=== PATIENT | male | born 1955 | race Caucasian/White ===

== ENCOUNTER 2019-06-16 02:41 | Inpatient (IN) | payer BC ==
--- NOTE | 2019-06-16 03:44 | ED ---
HPI Chest Pain - HPI Summary HPI Summary: 63 year old M presenting to [facility] accompanied by EMS complains of of left CP and SOB since earlier today 06/16/2019. EMS administered Nitro en route which helped with pt's discomfort. Pt reports a cough most likely due to smoking. Patient denies abd pain, nausea, fever, chills, nasal discharge, sore throat, swelling in the legs, diarrhea and constipation. PMHx of HTN years ago but has since been relieved due to weight loss. NO PMHx of MS or CP. SHx of smoking. The patient rates the pain 8/10 in severity. Symptoms aggravated by nothing. Symptoms alleviated by nothing. - History of Current Complaint Chief Complaint: EDChestPainROMI Time Seen by Provider: 06/16/19 03:03 Hx Obtained From: Patient Onset/Duration: Started Hours Ago, Still Present Current Severity: Moderate Pain Intensity: 8 Pain Scale Used: 0-10 Numeric Chest Pain Location: Diffuse - Left side Aggravating Factor(s): Nothing Alleviating Factor(s): Nothing Associated Signs and Symptoms: Positive: Negative - negative - sore throat, diarrhea and constipation, Shortness of Breath, Cough - smoker. Negative: Fever , Chills, Nausea, Abdominal Pain, Nasal Congestion, Edema - in legs - Allergy/Home Medications Allergies/Adverse Reactions: Allergies Allergy/AdvReac Type Severity Reaction Status Date / Time No Known Allergies Allergy Verified 06/16/19 03:16 Home Medications: Home Medications Acamprosate Calcium [Acamprosate Calcium Dr] 333 mg PO 06/16/19 [History] Cyanocobalamin TAB* [Vitamin B12 TAB*] 1,000 mcg PO DAILY 06/16/19 [History Confirmed 06/16/19] Disulfiram TAB* [Antabuse 250 MG TAB*] 250 mg PO 06/16/19 [History] Duloxetine HCl [Drizalma Sprinkle] 30 mg PO 06/16/19 [History] Folic Acid TAB* [Folvite TAB*] 06/16/19 [History] Gabapentin CAP(*) [Neurontin 300 CAP(*)] 300 mg PO BID 06/16/19 [History Confirmed 06/16/19] Ibuprofen TAB* [Advil TAB*] 200 mg PO Q6H 06/16/19 [History Confirmed 06/16/19] Lactulose 10 gm PO 06/16/19 [History] Loratadine 10 mg PO 06/16/19 [History] Naltrexone TAB* 06/16/19 [History] Omeprazole CAP (NF) 06/16/19 [History] Thiamine TAB* [Vitamin B-1 TAB 100 MG*] 06/16/19 [History] busPIRone TAB* [Buspar TAB *] 15 mg PO 06/16/19 [History] chlordiazePOXIDE HCl [Chlordiazepoxide HCl] 25 mg PO 06/16/19 [History] guaiFENesin [Guaifenesin] 06/16/19 [History] traZODone TAB* [Desyrel TAB*] 50 mg PO BEDTIME 06/16/19 [History Confirmed 06/16] PMH/Surg Hx/FS Hx/Imm Hx Cardiovascular History: Reports: Hx Hypertension Denies: Hx Myocardial Infarction Sensory History: Denies: Hx Legally Blind Infectious Disease History: No Infectious Disease History: Denies: Traveled Outside the [place] in Last 30 Days - Family History Known Family History: Positive: Hypertension - Social History Alcohol Use: Daily Alcohol Amount: Patient declines to share amount Substance Use Type: Reports: None Smoking Status (MU): Heavy Every Day Tobacco Smoker Review of Systems Negative: Fever, Chills Negative: Sore Throat, Nasal Discharge Positive: Chest Pain Positive: Shortness Of Breath, Cough - smoker Gastrointestinal: Negative - negative- constipation Negative: Abdominal Pain, Diarrhea, Nausea Negative: Edema - elgs All Other Systems Reviewed And Are Negative: Yes Physical Exam - Summary Physical Exam Summary: Constitutional: Well-developed, Well-nourished, Alert. (-) Distressed Skin: Warm, Dry HENT: Normocephalic; Atraumatic Eyes: Conjunctiva normal Neck: Musculoskeletal ROM normal neck. (-) JVD, (-) Stridor, (-) Tracheal deviation Cardio: Rhythm regular, rate normal, Heart sounds normal; Intact distal pulses; The pedal pulses are 2+ and symmetric. Radial pulses are 2+ and symmetric. (-) Murmur Pulmonary/Chest wall: Effort normal. (-) Respiratory distress, (-) Wheezes, (-) Rales Abd: Soft, (-) tenderness, (-) Distension, (-) Guarding, (-) Rebound Musculoskeletal: (-) Edema Lymph: (-) Cervical adenopathy Neuro: sleepy, but arousable Psych: Mood and affect Normal Triage Information Reviewed: Yes Vital Signs On Initial Exam: Initial Vitals Temp Pulse Resp BP Pulse Ox 97.8 F 78 15 131/80 100 06/16/19 02:50 06/16/19 02:50 06/16/19 02:50 06/16/19 02:50 06/16/19 02:50 Vital Signs Reviewed: Yes Procedures - Sedation Patient Received Moderate/Deep Sedation with Procedure: No Diagnostics - Vital Signs Vital Signs Temp Pulse Resp BP Pulse Ox 06/16/19 03:04 85 06/16/19 02:50 97.8 F 78 15 131/80 100 - Laboratory Result Diagrams: 06/16/19 03:09 06/16/19 03:09 Lab Statement: Any lab studies that have been ordered have been reviewed, and results considered in the medical decision making process. - Radiology CXR Radiology Interpretation Completed By: ED Physician Summary of Radiographic Findings: CXR found no abnormalities, per ED physician. Pending official report. - EKG 0322 Cardiac Rate: NL Summary of EKG Findings: Normal sinus rhythm at 92 bpm, normal MO, normal QRS, prolonged QTc, normal axis, normal ST, normal T-waves, nonspecific EKG Chest Pain Course/Dx - Course Course Of Treatment: 63 year old M presenting to [facility] accompanied by EMS complains of of left CP and SOB since earlier today 06/16/2019. EMS administered Nitro en route which helped with pt's discomfort. Physical exam findings: sleepy, but arousable. Bloodwork results with no significant abnormalities except for L RBC, L Hgb, L Hct, H MCH, L Plt Count, L Absolute Lymphs, L Sodium , L Potassium (2.7), L Chloride, L BUN/Creatinine Ratio, H Lactic Acid (3.2), H Alkaline Phosphatase. An EKG shows normal sinus rhythm at 92 bpm, normal MO, normal QRS, prolonged QTc, normal axis, normal ST, normal T-waves, nonspecific EKG. CXR shows no abnormalities, per ED physician. Pending official report. In the ED course, the patient was given Ns, Potassium Chlor 40 meq, BLANCA; 10 meq/ 50 ml Ivpremix. We discussed patient care with who recommended admission. The patient will be admitted to the hospitalist. The patient is agreeable with this plan. - Diagnoses Provider Diagnoses: Chest pain, Hyponatremia, Lactic acid acidosis - Provider Notifications Discussed Care Of Patient With: Nancy Patel Instructed by Provider To: Admit As Inpatient Discharge ED - Sign-Out/Discharge Documenting (check all that apply): Patient Departure - admit - Discharge Plan Condition: Stable Disposition: ADMITTED TO [facility] - Billing Disposition and Condition Condition: STABLE Disposition: Admitted to [facility] - Attestation Statements Document Initiated by Scribe: Yes Documenting Scribe: Juan Luis Watters Provider For Whom Meredithibe is Documenting (Include Credential): Melisa Pierson MD Scribe Attestation: I, Juan Luis Watters, scribed for Melisa Gutierrez MD on 06/17/19 at 0402. Scribe Documentation Reviewed: Yes Provider Attestation: The documentation as recorded by the meredithibJuan Luis garcia accurately reflects the service I personally performed and the decisions made by me, Melisa Gutierrez MD Status of Scribe Document: Viewed
[2019-06-16 03:50] LABS: BUN/Creatinine Ratio 6.8 (8-20); Calcium 8.7 mg/dL (8.6-10.3); EGFR African American 106.5 (>60); Globulin 2.7 g/dL (2-4); Total Protein 6.7 g/dL (6.4-8.9)
[2019-06-16 03:51] LABS: Albumin/Globulin Ratio 1.5 (1-3); Total Bilirubin 0.6 mg/dL (0.2-1.0)
[2019-06-16 03:53] LABS: Troponin I 0.01 ng/mL (<0.03)
[2019-06-16 04:10] LABS: ABS Lymphocytes 0.5 10^3/ul (1.0-4.8); ABS Monocytes 0.7 10^3/ul (0-0.8); ABS Neutrophils 3.4 10^3/ul (1.5-7.7); Eosinophil % 0.9 %; Hematocrit 38 % (42-52); Hemoglobin 13.5 g/dL (14.0-18.0); Lymphocyte % 10.2 %; Mean Corpuscular HGB Conc 36 g/dL (31-36); Mean Corpuscular Hemoglobin 33 pg (27-31); Mean Corpuscular Volume 93 fL (80-94); Mean Platelet Volume 9.6 fL (7.4-10.4); Platelet Count 67 10^3/uL (150-450); Red Blood Count 4.08 10^6 /uL (4.18-5.48); Red Cell Distribution Width 15 % (10-15); White Blood Count 4.7 10^3/uL (3.5-10.8)
[2019-06-16 04:11] LABS: Potassium 2.7 mmol/L (3.5-5.0)
[2019-06-16] MEDS ORDERED: KCL 10 MEQ/50 ML IVPREMIX* 10 MEQ/50 ML BAG IV ONE (04:12)
[2019-06-16] MEDS ORDERED: Potassium Chlor TAB* 20 MEQ TAB.ER PO ONE (04:12)
[2019-06-16] MEDS ORDERED: NS 0.9% 1000 ML** 1,910 ML IV ONE (04:45)
--- NOTE | 2019-06-16 08:08 | ADMNOTE ---
Subjective Date of Service: 06/16/19 Interval History: ADMISSION HISTORY AND PHYSICAL EXAM: Allergies Allergy/AdvReac Type Severity Reaction Status Date / Time No Known Allergies Allergy Verified 06/16/19 03:16 Home Medications Medication Instructions Recorded Confirmed Type Acamprosate Calcium [Acamprosate 333 mg PO 06/16/[address]] Cyanocobalamin TAB* [Vitamin B12 1,000 mcg PO DAILY 06/16/19 06/16/19 History TAB*] Disulfiram TAB* [Antabuse 250 MG 250 mg PO 06/16/19 History TAB*] Duloxetine HCl [Drizalma Sprinkle] 30 mg PO 06/16/19 History Folic Acid TAB* [Folvite TAB*] 06/16/19 History Gabapentin CAP(*) [Neurontin 300 300 mg PO BID 06/16/19 06/16/19 History CAP(*)] Ibuprofen TAB* [Advil TAB*] 200 mg PO Q6H 06/16/19 06/16/19 History Lactulose 10 gm PO 06/16/19 History Loratadine 10 mg PO 06/16/19 History Naltrexone TAB* 06/16/19 History Omeprazole CAP (NF) 06/16/19 History Thiamine TAB* [Vitamin B-1 TAB 100 06/16/19 History MG*] busPIRone TAB* [Buspar TAB *] 15 mg PO 06/16/19 History chlordiazePOXIDE HCl 25 mg PO 06/16/19 History [Chlordiazepoxide HCl] guaiFENesin [Guaifenesin] 06/16/19 History traZODone TAB* [Desyrel TAB*] 50 mg PO BEDTIME 06/16/19 06/16/19 History HPI: The patient was in his usual state of health when he had chest pain about 1-2 AM today. It lasted about an hour. No associated sx's No prior hx chest pain or heart disease. Family History: Findings - Father living with heart disease. Mother of heart failure. 1 brother with heart disease. Social History: Findings - Smoker. Alcoholism. Lives alone. His father is his SDM. Past Medical History: Unchanged from Admission - smoker. Inguinal herniorrhaphy. Review of Systems - Measurements Intake and Output: Intake and Output Last 24 Hours 06/14/19 06/15/19 06/16/19 06/17/19 06:59 06:59 06:59 06:59 Intake Total 1960 Output Total 400 Balance 1560 Weight 140 lb Intake: IV Fluids 1959 Output: Urine 400 - Review of Systems Constitutional Symptoms: Negative: Weight Gain, Weight Loss, Weakness, Fatigue, Fever, Night Sweats, Unexplained Falls, Other Dermatology: Positive: Normal HEENT: Positive: Normal Eyes: Positive: Normal Thyroid: Positive: Normal Pulmonary: Positive: Normal Cardiology: Positive: Chest Pain Gastroenterology: Positive: Normal Genital - Urinary: Positive: Normal Musculoskeletal: Positive: Joint Pain Endocrinology: Positive: Normal Hematologic/Lymphatic: Negative: Anemia, Easy Bruising, Hx Leukemia, Hx Lymphoma, Use of Anticoagulant, Use of Antiplatelet Drugs, Other Neurology: Positive: Normal Psychiatry: Positive: Depression Allergic/Immunologic: Negative: Hx Anaphylaxis, Hx Angioedema, Hx Environmental, Hx Seasonal, Asthma, Hx HIV, Immunocompromise, Swollen Glands LymphNodes, Other Objective Vital Signs - 8 hr 06/16/19 06/16/19 06/16/19 02:48 02:49 02:50 Temperature 97.8 F Pulse Rate 85 78 Respiratory 16 14 15 Rate Blood Pressure 131/80 131/80 (mmHg) O2 Sat by Pulse 97 100 Oximetry 06/16/19 06/16/19 06/16/19 03:00 03:04 03:18 Temperature Pulse Rate 89 85 87 Respiratory 17 Rate Blood Pressure 107/76 (mmHg) O2 Sat by Pulse 98 100 Oximetry 06/16/19 06/16/19 06/16/19 03:48 04:00 04:18 Temperature Pulse Rate 80 87 85 Respiratory 16 22 17 Rate Blood Pressure 111/61 139/78 (mmHg) O2 Sat by Pulse 100 100 100 Oximetry 06/16/19 06/16/19 06/16/19 04:48 05:18 05:49 Temperature 97.6 F Pulse Rate 83 79 Respiratory 14 19 Rate Blood Pressure 111/77 129/84 (mmHg) O2 Sat by Pulse 99 100 100 Oximetry 06/16/19 06/16/19 06:00 06:42 Temperature 97.9 F Pulse Rate 78 78 Respiratory 16 15 Rate Blood Pressure 106/60 (mmHg) O2 Sat by Pulse 100 100 Oximetry Oxygen Devices in Use Now: None Appearance: Alert, supine on ED stretcher. Neutral affect. Looks comfortable. Eyes: No Scleral Icterus Ears/Nose/Mouth/Throat: Clear Oropharnyx, Mucous Membranes Moist Neck: NL Appearance and Movements; NL JVP, No Thyroid Enlargement, Masses Respiratory: Symmetrical Chest Expansion and Respiratory Effort, Clear to Auscultation, Clear to Percussion Cardiovascular: NL Sounds; No Murmurs; No JVD, RRR, No Edema, - Abdominal: NL Sounds; No Tenderness; No Distention, No Hepatosplenomegaly Extremities: No Edema, No Clubbing, Cyanosis Skin: No Rash or Ulcers, No Nodules or Sclerosis, - Neurological: Alert and Oriented x 3, NL Sensation - No tremor. Result Diagrams: 06/16/19 03:09 06/16/19 03:09 Assess/Plan/Problems-Billing Assessment: - Patient Problems (1) Hyponatremia Current Visit: Yes Status: Acute Code(s): E87.1 - HYPO-OSMOLALITY AND HYPONATREMIA SNOMED Code(s): 27599749 Comment: Likely related to alcohol use. Fluid restriction. Repeat BMP . (2) Hypokalemia Current Visit: Yes Status: Acute Code(s): E87.6 - HYPOKALEMIA SNOMED Code( s): 10219230 Comment: Oral KCL ordered. BMP 06/17. (3) Chest pain Current Visit: Yes Status: Acute Code(s): R07.9 - CHEST PAIN, UNSPECIFIED SNOMED Code(s): 93770270 Comment: HEART score 3. Stress test 06/17. Heart healthy diet, received ASA in ambulance, continue here. (4) Tobacco abuse Current Visit: Yes Status: Acute Code(s): Z72.0 - TOBACCO USE SNOMED Code( s): 041419310 Comment: Pt advised to quit smoking and avoid second hand smoke. Nicotine patch 21 mg/d ordered. (5) Alcoholism Current Visit: Yes Status: Acute Code(s): F10.20 - ALCOHOL DEPENDENCE, UNCOMPLICATED SNOMED Code(s): 4064489 Comment: Will give tapering dose chlordiazepoxide while in hospital. Thiamine. SW consult.
[2019-06-16] MEDS ORDERED: chlordiazePOXIDE CAP* 25 MG PO PRN (11:12)
[2019-06-16] MEDS: D5W NS 0.9% 20Meq KCL 1000 ML* 1,000 ML IV SCH (11:27)
[2019-06-16] MEDS: Cyanocobalamin TAB* 500 MCG PO SCH (11:32)
[2019-06-16] MEDS: Thiamine TAB* 100 MG TAB PO SCH (11:33)
[2019-06-16] MEDS: Pantoprazole TAB * 40 MG TAB PO SCH (11:33)
[2019-06-16] MEDS: Folic Acid TAB* 1 MG PO SCH (11:33)
[2019-06-16] MEDS: chlordiazePOXIDE CAP* 25 MG PO SCH ×3 (11:33→23:40)
[2019-06-16] MEDS: Aspirin 81 mg CHEW TAB* 81 MG TAB.CHEW PO SCH (11:33)
[2019-06-16] MEDS: Potassium Chlor TAB* 10 MEQ TAB.ER PO SCH ×4 (11:33→23:40)
[2019-06-16] MEDS: DULOXETINE 30 MG PO SCH (11:35)
[2019-06-16] MEDS: Enoxaparin(*) 40 MG/0.4 ML SYR SUBCUT SCH (11:39)
[2019-06-17] MEDS: D5W NS 0.9% 20Meq KCL 1000 ML* 1,000 ML IV SCH (02:47)
[2019-06-17 05:13] LABS: BUN/Creatinine Ratio 5.5 (8-20); Calcium 7.9 mg/dL (8.6-10.3); EGFR African American 102.5 (>60); EGFR Non-African American 84.7 (>60); Potassium 4.3 mmol/L (3.5-5.0)
[2019-06-17] MEDS ORDERED: Nicotine PATCH 21 MG/24 HR* PATCH TRANSDERM SCH (08:00)
[2019-06-17] MEDS ORDERED: Regadenoson* 0.4 MG/5 ML SYRINGE ONE (08:22)
[2019-06-17] MEDS: Potassium Chlor TAB* 10 MEQ TAB.ER PO SCH ×2 (09:12→15:41)
[2019-06-17] MEDS: Aspirin 81 mg CHEW TAB* 81 MG TAB.CHEW PO SCH (09:12)
[2019-06-17] MEDS: chlordiazePOXIDE CAP* 25 MG PO SCH ×2 (09:13→15:41)
[2019-06-17] MEDS: Thiamine TAB* 100 MG TAB PO SCH (09:13)
[2019-06-17] MEDS: Folic Acid TAB* 1 MG PO SCH (09:13)
[2019-06-17] MEDS: Pantoprazole TAB * 40 MG TAB PO SCH (09:13)
[2019-06-17] MEDS: DULOXETINE 30 MG PO SCH (09:14)
[2019-06-17] MEDS: Cyanocobalamin TAB* 500 MCG PO SCH (09:14)
[2019-06-17 13:02] LABS: ABS Eosinophils 0.1 10^3/ul (0-0.6); ABS Lymphocytes 0.4 10^3/ul (1.0-4.8); ABS Monocytes 0.4 10^3/ul (0-0.8); ABS Neutrophils 1.7 10^3/ul (1.5-7.7); Eosinophil % 2.7 %; Hematocrit 36 % (42-52); Hemoglobin 12.4 g/dL (14.0-18.0); Lymphocyte % 15.2 %; Mean Corpuscular HGB Conc 35 g/dL (31-36); Mean Corpuscular Hemoglobin 33 pg (27-31); Mean Corpuscular Volume 96 fL (80-94); Mean Platelet Volume 9.9 fL (7.4-10.4); Platelet Count 50 10^3/uL (150-450); Red Blood Count 3.72 10^6 /uL (4.18-5.48); Red Cell Distribution Width 16 % (10-15); White Blood Count 2.6 10^3/uL (3.5-10.8)
--- NOTE | 2019-06-17 13:44 | CONSULT ---
Subjective Date of Service: 06/17/19 Interval History: Service Date: 06/16/19 Consult date 06/17/2019 CC: Chest pain Reason for consult: chest pain HPI Mr. Garay is a 63 year old man who developed left upper chest discomfort and shortness of breath at rest. He tells me he has never had this discomfort before. He tells me the discomfort lasted about 4 hours total from start to complete resolustion. H+P notes about an hour. Review of Nursing records put the discomfort at about 2 hours. Regardless, the pain was rated as severe and continuous without interruption for at least an hour. He had a lexiscan stress MPI which I reviewed. He had prominent tracer uptake of bowel loops on stress imaging that reduced quality. There was a prominent inferior wall defect that corrected on attenuation correction consistent with artifact. He is now without discomfort. Allergies Allergy/AdvReac Type Severity Reaction Status Date / Time bee venom protein (honey bee) Allergy Swelling Verified 06/17/19 11:37 haloperidol [From Haldol] Allergy Swelling Verified 06/17/19 11:37 prochlorperazine Allergy Swelling Verified 06/17/19 11:37 [From Compazine] Soc Hx: Tobacco use Alcoholism No active drugs Pmhx/surgical: inguinal hernia Medications Active Medications: Aspirin (Aspirin 81 Mg Chew Tab*) 81 mg PO DAILY [facility] Last Admin: 06/17/19 09:12 Dose: 81 mg Chlordiazepoxide (Librium Cap*) 25 mg PO TID [facility] Last Admin: 06/17/19 09:13 Dose: 25 mg Chlordiazepoxide (Librium Cap*) 25 mg PO Q2H PRN PRN Reason: ANXIETY Cyanocobalamin (Vitamin B12 Tab*) 1,000 mcg PO DAILY [facility] Last Admin: 06/17/19 09:14 Dose: 1,000 mcg Enoxaparin Sodium (Lovenox(*)) 40 mg SUBCUT Q24H [facility] Last Admin: 06/16/19 11:39 Dose: 40 mg Folic Acid (Folvite Tab*) 1 mg PO DAILY [facility] Last Admin: 06/17/19 09:13 Dose: 1 mg Potassium Chloride/Dextrose (D5w Ns 0.9% 20meq Kcl 1000 Ml*) 1,000 mls @ 75 mls /hr IV PER RATE [facility] Last Admin: 06/17/19 02:47 Dose: 75 mls/hr Nicotine (Nicotine Patch 21 Mg/24 Hr*) 1 patch TRANSDERM DAILY@0800 [facility] Last Admin: 06/17/19 09:12 Dose: 1 patch Nft: Duloxetine Hcl [Drizalma Sprinkle] 30 Mg 30 mg PO DAILY [facility] Last Admin: 06/17/19 09:14 Dose: Not Given Pantoprazole Sodium (Protonix Tab*) 40 mg PO DAILY [facility] Last Admin: 06/17/19 09:13 Dose: 40 mg Potassium Chloride (Klor Con Er Tab*) 20 meq PO QID [facility] Last Admin: 06/17/19 09:12 Dose: 20 meq Thiamine HCl (Vitamin B-1 Tab*) 100 mg PO DAILY [facility] Last Admin: 06/17/19 09:13 Dose: 100 mg Home Medications: Acamprosate Calcium [Acamprosate Calcium Dr] 333 mg PO 06/16/19 [History] Cyanocobalamin TAB* [Vitamin B12 TAB*] 1,000 mcg PO DAILY 06/16/19 [History Confirmed 06/16/19] Disulfiram TAB* [Antabuse 250 MG TAB*] 250 mg PO 06/16/19 [History] Duloxetine HCl [Drizalma Sprinkle] 30 mg PO 06/16/19 [History] Folic Acid TAB* [Folvite TAB*] 06/16/19 [History] Gabapentin CAP(*) [Neurontin 300 CAP(*)] 300 mg PO BID 06/16/19 [History Confirmed 06/16/19] Ibuprofen TAB* [Advil TAB*] 200 mg PO Q6H 06/16/19 [History Confirmed 06/16/19] Lactulose 10 gm PO 06/16/19 [History] Loratadine 10 mg PO 06/16/19 [History] Naltrexone TAB* 06/16/19 [History] Omeprazole CAP (NF) 06/16/19 [History] Thiamine TAB* [Vitamin B-1 TAB 100 MG*] 06/16/19 [History] busPIRone TAB* [Buspar TAB *] 15 mg PO 06/16/19 [History] chlordiazePOXIDE HCl [Chlordiazepoxide HCl] 25 mg PO 06/16/19 [History] guaiFENesin [Guaifenesin] 06/16/19 [History] traZODone TAB* [Desyrel TAB*] 50 mg PO BEDTIME 06/16/19 [History Confirmed 06/16] Review of Systems - Measurements Intake and Output: Intake and Output Last 24 Hours 06/15/19 06/16/19 06/17/19 06/18/19 06:59 06:59 06:59 06:59 Intake Total 2212 618 6087 Output Total 400 Balance 4365 662 0595 Weight 140 lb 131 lb 9.6 oz Intake: IV Fluids 1959 1426 D5W NS 20 meq KCL 1426 Oral 710 0 Output: Urine 400 Other: Estimated Void Medium # Bowel Movements 0 # Voids 3 - Review of Systems Constitutional Symptoms: Negative: Weight Gain, Weight Loss, Fever Dermatology: Negative: Rash, Skin Lesions HEENT: Negative: Change in Hearing, Vertigo Eyes: Negative: Change in Vision, Double Vision Thyroid: Negative: Weight Loss, Weight Gain Pulmonary: Positive: Shortness of Breath Negative: Respiratory Distress Cardiology: Positive: Chest Pain, Shortness of Breath Negative: Edema, Syncope, Claudication, Paroxysmal Nocturnal Dyspnea, Orthopnea Gastroenterology: Negative: Blood in Stools, Haematemesis, Melena Genital - Urinary: Negative: Dysuria, Hematuria Musculoskeletal: Negative: Joint Pain, Joint Stiffness Endocrinology: Negative: Obesity, Diabetes Hematologic/Lymphatic: Negative: Use of Anticoagulant, Use of Antiplatelet Drugs Neurology: Negative: Change in Speech, Change in Sphincter Function, Change in Walking, Hx of Stroke\TIA Psychiatry: Negative: Unusual Anxiety, Suicidal Ideation Allergic/Immunologic: Negative: Hx HIV, Immunocompromise Review of Systems Statement: All other review of systems negative, unless stated above. Objective Vital Signs: Temp Pulse Resp BP Pulse Ox 97.4 F 52 16 106/62 100 06/17/19 07:15 06/17/19 07:15 06/17/19 09:13 06/17/19 07:15 06/17/19 07:15 Oxygen Devices in Use Now: None Appearance: nad, flat affect, somewhat unkept appearance Ears/Nose/Mouth/Throat: Clear Oropharnyx Neck: NL Appearance and Movements; NL JVP, Trachea Midline Respiratory: Symmetrical Chest Expansion and Respiratory Effort, Clear to Auscultation Cardiovascular: NL Sounds; No Murmurs; No JVD, RRR, No Edema Abdominal: NL Sounds; No Tenderness; No Distention Extremities: No Edema Skin: No Rash or Ulcers Neurological: Alert and Oriented x 3 Laboratory Results: 06/17/19 12:56 06/17/19 04:46 Total Bilirubin 0.60 mg/dL (0.2-1.0) 06/16/19 03:09 AST 26 U/L (13-39) 06/16/19 03:09 ALT 18 U/L (7-52) 06/16/19 03:09 Alkaline Phosphatase 118 U/L (34-104) H 06/16/19 03:09 B-Natriuretic Peptide 35 pg/mL (<=100) 06/16/19 03:09 Total Protein 6.7 g/dL (6.4-8.9) 06/16/19 03:09 Albumin 4.0 g/dL (3.2-5.2) 06/16/19 03:09 Globulin 2.7 g/dL (2-4) 06/16/19 03:09 Albumin/Globulin Ratio 1.5 (1-3) 06/16/19 03:09 06/16/19 06/16/19 06/16/19 03:09 06:31 09:06 Troponin I 0.01 0.01 0.00 Diagnostic Imaging: Exam Date: 06/16/19 CHEST AP/PORT IMPRESSION: #. No acute pulmonary or cardiac process evident. EKG Data: ekg on admission NSR mildly prolonged qt interval, no ischemic changes Assessment/Plan The degree and length of patients symptom episode would have expected an abnormal troponin level if it were related to myocardial ischemia. AC corrected lexiscan stress MPI was normal. Patient was counseled on smoking cessation to reduce the risk of things including but not limited to heart attack and and he expressed understanding. I recommend to check and treat lipids according to current guidelines. Will recheck an EKG (ordered) post-potassium replacement
[2019-06-17] MEDS: Enoxaparin(*) 40 MG/0.4 ML SYR SUBCUT SCH (14:44)
[2019-06-17 18:04] VITALS: BP 117/63
--- NOTE | 2019-06-17 18:34 | DS ---
DISCHARGE SUMMARY: DATE OF ADMISSION: DATE OF DISCHARGE: 06/17/19 HISTORY OF PRESENT ILLNESS/HOSPITAL COURSE: This 63-year-old man had chest pain that woke him up at about 1 or 2 a.m. It lasted about an hour. There were no associated symptoms. He never had similar pain before. He had no history of heart disease. The rest of the history is detailed in the admission note. The patient was admitted to a telemetry unit. He had 3 troponin levels, all of which were within normal limits. He had a nuclear chemical stress test. The radiologist felt there was an area of ischemia, but Dr. Reed reviewed the images. With attenuation correction, there was no area of ischemia. The patient was seen by social media assistant and given the list of inpatient and outpatient providers and services for alcohol rehabilitation. The patient was given a nicotine patch. I think the patient has been out of his medications for some time. He has not followed up properly with Dr. Snigh in [place] or the [place] system. I encouraged him to make an appointment with his primary doctor and with a [place] doctor and to get his medications from the [place]. The medication list that we gave him would probably be not the final one, to be given by his primary providers. DISCHARGE DIAGNOSES: 1. Noncardiac chest pain. 2. Hyponatremia and hypokalemia. 3. Tobacco abuse. 4. Alcoholism. DISCHARGE MEDICATIONS: 1. Nicotine patch 21 mg per day daily. 2. Buspirone 15 mg as prescribed. 3. Gabapentin 300 mg b.i.d. 4. Vitamin B12 1000 mcg daily. 5. Guaifenesin as prescribed. 6. Omeprazole as prescribed. 7. Loratadine 10 mg as prescribed. 8. Lactulose as prescribed. 9. Folic acid as prescribed. 10. Duloxetine 30 mg daily. 11. Trazodone 50 mg h.s. 12. Ibuprofen as prescribed. 13. Thiamine 100 mg as prescribed. 14. Acamprosate 333 mg as prescribed. CONDITION ON DISCHARGE: Stable. DISPOSITION ON DISCHARGE: Discharged home. [id number]/[facility] #: [id number] MTDD
== END 2019-06-17 16:50 | disposition home or self-care (01) | DRG 203 ==
LOC: ED 02:41 → INTOOBSV 08:13 → MED 08:13 → OBSVTOIN 08:13 → UNDOADMOB 08:13 → MED 08:13 → UNDODISOB 06-17 16:50
PROVIDERS: ADMIT Internal Medicine; ATTEND Internal Medicine
DX: R07.89 Other chest pain (principal); E87.1 Hypo-osmolality and hyponatremia; E87.2 Acidosis; E87.6 Hypokalemia; F17.210 Nicotine dependence, cigarettes, uncomplicated; F10.20 Alcohol dependence, uncomplicated; Z79.899 Other long term (current) drug therapy; R53.83 Other fatigue; I10 Essential (primary) hypertension; R06.02 Shortness of breath
CPT/HCPCS: 36415; 71045; 78452; 80048; 80053; 80320; 83605; 83880; 84484; 85025; 85060; 93005; 93017; 96365; 96372; 99285; A9270-GY; A9502; G0378; G0480; J1650; J2785; J3480